=== PATIENT | female | born 1965 | race Caucasian/White ===

== ENCOUNTER → 2017-11-27 | Outpatient (CLI) | payer MEDICARE ==
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
== END ==
LOC: RAD 11:29
PROVIDERS: ATTEND Internal Medicine
DX: M25.512 Pain in left shoulder (principal); M79.602 Pain in left arm

== ENCOUNTER → 2018-04-03 | Outpatient (CLI) | payer MEDICARE ==
--- NOTE | 2018-04-03 16:10 | Diagnostic Imaging Report ---
Exam: Bilateral hips, 2 views History: Chronic bilateral hip pain Comparison: None. Findings: No acute, displaced fracture or dislocation. The femoral heads project appropriately over the acetabula. Mild femoroacetabular joint space narrowing with marginal acetabular osteophytosis. No femoral head flattening or subchondral collapse. Soft tissues are unremarkable. 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 Signed by: Dr. Ricardo Alvarado M.D. on 04/03/2018 4:07 PM
== END ==
LOC: RAD 15:23
PROVIDERS: ATTEND Internal Medicine
DX: M25.552 Pain in left hip (principal); M25.551 Pain in right hip
CPT/HCPCS: 73521

== ENCOUNTER → 2018-04-07 | Outpatient (CLI) | payer MEDICARE ==
--- NOTE | 2018-04-07 15:30 | Diagnostic Imaging Report ---
EXAM: Complete Abdominal Ultrasound INDICATION: Abdominal pain. Chronic diarrhea COMPARISON: None. TECHNIQUE: Transverse and longitudinal images of the upper abdomen were obtained. FINDINGS: Liver: Size: 14.4 cm in the right midclavicular line, normal Appearance: Normal echogenicity, smooth contour Mass: No focal masses Spleen: Size: 9.2 cm in length, normal Echogenicity: Normal Mass: No focal masses Gallbladder: Stones/Sludge: None Wall: 0.2 cm Appearance: No wall thickening, pericholecystic fluid or hydrops. Sonographic Edwards's Sign: Negative Bile Ducts: Intrahepatic Ducts: No dilatation Extrahepatic Ducts: Common bile duct measures 0.3 cm, no dilatation Pancreas: Visualized portions of the pancreatic head, neck and proximal body are normal. Kidneys: Length: Right 9.4 cm Left 8.4 cm Echogenicity: Normal Collecting System: No hydronephrosis Stone: None Cyst/Mass: None Vessels: Aorta: Visualized portions are normal Inferior Vena Cava: Visualized portions are normal Main Portal Vein: 1.0 cm, normal size with hepatopetal flow. Free Fluid: No ascites or pleural effusion IMPRESSION: Slightly limited exam due to patient's body habitus. Otherwise, unremarkable abdominal ultrasound. Signed by: Dr. Aaron Pena M.D. on 04/07/2018 3:27 PM
== END ==
LOC: US 14:28
PROVIDERS: ATTEND Internal Medicine
DX: R19.7 Diarrhea, unspecified (principal)
CPT/HCPCS: 76700

== ENCOUNTER 2018-07-15 04:04 | Emergency (ER) | payer MEDICARE ==
[~2018-07-15] VITALS: Ht 160 cm; Wt 104.8 kg
--- OUTSIDE RECORDS SUMMARY | 2018-07-15 04:08 | XMS REPORT ---
Author Author Elina Sandoval [facility] eClinicalWorks Address Unknown Phone Unavailable Care Team Providers Care Switchboard Operator Name Role Phone Elina Sandoval Unavailable Allergies, Adverse Reactions, Alerts Substance Reaction Event Type Rocephin rash Drug Allergy Problems Problem Type Condition Code Onset Dates Condition Status Assessment Polyarthritis M13.0 Active Problem Polyarthritis M13.0 Active Assessment Positive ALDO (antinuclear antibody) R76.8 Active Assessment Pain in left shoulder M25.512 Active Medications Medication Code System Code Instructions Start Date End Date Status Dosage Trintellix [facility] 51815827559 10 MG Orally Once a day Active 1 tablet Liothyronine Sodium ND 39569222132 5 MCG Orally bid Active 2 tablets Metoprolol Succinate ER ND 49090432046 100 MG Orally Once a day Active 1 tablet BusPIRone HCl ND 59969050919 10 MG Orally Twice a day Active 1 tablet Gabapentin ND 48753235448 600 MG Orally Three times a day Active 1 tablet Prilosec OTC ND 90546165817 20 MG Orally bid Active 1 tablet Eliquis ND 20610914349 5 MG Orally Active as directed Levothyroxine Sodium ND 79981482771 25 MCG Orally Once a day Active 1 tablet on an empty stomach in the morning Simvastatin ND 48175414255 40 MG Orally Once a day Active 1 tablet in the evening Glimepiride ND 72141792247 4 MG Orally twice a day Active 1 tablet with breakfast or the first main meal of the day Hydrocodone-Acetaminophen ND 98464053475 10-325 MG Orally every 6 hrs Active 1 tablet as needed Losartan Potassium ND 51426543134 50 MG Orally Once a day Active 1 tablet Metformin HCl ND 58172493854 500 MG Orally Twice a day Active 1 tablet with meals Plaquenil ND 62869072939 200 MG Orally BID May 28, 2018 Active 1 tablet with food or milk Donepezil Hydrochloride ND 99942744383 10 MG Orally Once a day Active 1 tablet at bedtime Plaquenil [facility] 66358695299 200 MG Orally Once a day May 28, 2018 Active 1 tablet with food or milk Vital Signs Date/Time: May 28, 2018 BMI 43.03 Index Weight 235.3 lbs Height 62 in Temperature 98.4 F Cardiac Monitoring Heart Rate 60 /min Blood Pressure Diastolic 82 mm Hg Blood Pressure Systolic 112 mm Hg Results No Known Results Summary Purpose eClinicalWorks Submission
--- OUTSIDE RECORDS SUMMARY | 2018-07-15 04:08 | XMS REPORT | Summary of Care ---
Author Author [facility] Organization [facility] Address Unknown Phone Unavailable Encounter HQ Elvin(ILEANA) [id number] Date(s): 12/01/16 - 12/02/16 [facility] [id number] [place] [address]- Discharge Disposition: Home or Self Care Attending Physician: Keenan Hurt MD Admitting Physician: Keenan Hurt MD Vital Signs 1 2 3 Most recent to oldest [Reference Range]: 160.02 cm (12/01/16 11:47 PM) 160.02 cm (12/01/16 4:53 PM) Height 98.6 DegF (12/02/16 11:50 AM) 98.1 DegF (12/02/16 7:44 AM) 98.1 DegF (12/02/16 3:38 AM) Temperature Oral [96.4-99.1 DegF] 128/75 mmHg (12/02/16 7:44 AM) 132/77 mmHg (12/02/16 3:38 AM) Blood Pressure [90-140/60-90 mmHg] 104 mmHg (12/02/16 11:50 AM) Systolic Blood Pressure [90-140 mmHg] 65 mmHg (12/02/16 11:50 AM) Diastolic Blood Pressure [60-90 mmHg] 18 BRMIN (12/02/16 11:50 AM) 17 BRMIN (12/02/16 7:44 AM) 16 BRMIN (12/02/16 7:21 AM) Respiratory Rate [14-20 BRMIN] 73 bpm (12/02/16 11:50 AM) 71 bpm (12/02/16 7:44 AM) 67 bpm (12/02/16 3:38 AM) Peripheral Pulse Rate [60-100 bpm] 115.455 kg (12/02/16 1:35 AM) 115.455 kg (12/01/16 11:47 PM) 115.455 kg (12/01/16 4:53 PM) Weight 45.09 m2 (12/01/16 11:47 PM) 45.09 m2 (12/01/16 4:53 PM) Body Mass Index Problem List Condition Effective Dates Status Health Status Informant Anxiety Resolved disorder(Confirmed) 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, left shoulder(Confirmed) 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, right shoulder(Confirmed) Biceps tendonitis of Resolved both shoulders(Confirmed) Bursitis of hip, Resolved right(Confirmed) CHF, Resolved chronic(Confirmed) Chronic Resolved depression(Confirmed ) 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 ) HTN Resolved (hypertension)(Confi rmed) Neuropathy of both Resolved feet(Confirmed) Tendonitis involving Resolved right hip abductors(Confirmed) Abnormal finding on Resolved thyroid function test(Confirmed) Allergies, Adverse Reactions, Alerts Substance Reaction Severity Status Other Food Allergy Active Medications aspirin 81 mg tablet, enteric coated 81 mg=1 tab, PO, Q24H, 0 Refill(s) Start Date: 12/02/16 Status: Ordered aspirin 81 mg tablet, enteric coated 81 mg, 1 tab, Route: PO, Drug form: ECTAB, Q24H, Dosing Weight 115.455, kg, Star t date: 12/02/16 1:00:00 CDT, Duration: 30 day, Stop date: 12/31/16 1:00:00 CDT Notes: Do not crush or chew.(Same As: Ecotrin) Start Date: 12/02/16 Stop Date: 12/02/16 Status: Discontinued Ativan 1 mg, 1 tab, Route: PO, Drug form: TAB, ONCE, Dosing Weight 115.455, kg, Priorit y: STAT, Start date: 12/01/16 21:45:00 CDT, Stop date: 12/01/16 21:45:00 CDT Notes: (Same as: Ativan) Start Date: 12/01/16 Stop Date: 12/01/16 Status: Completed Breo Ellipta 200 mcg-25 mcg/inh inhalation powder 1 puff, INHALATION, Daily, 0 Refill(s) Start Date: 12/01/16 Status: Ordered busPIRone 10 mg, 1 tab, Route: PO, Drug form: TAB, BID, Dosing Weight 115.455, kg, Start d ate: 12/02/16 17:00:00 CDT, Duration: 30 day, Stop date: 01/01/17 9:00:00 CDT Notes: (Same As: BuSpar) Start Date: 12/02/16 Stop Date: 12/02/16 Status: Canceled busPIRone 10 mg oral tablet 10 mg=1 tab, PO, BID, 0 Refill(s) Start Date: 12/01/16 Status: Ordered Dextrose 50% Syringe 12.5 gm, 25 mL, Route: IVP, Drug Form: INJ, Dosing Weight 115.455, kg, PRN, PRN Blood Glucose Results, Start date: 12/02/16 1:40:00 CDT, Duration: 30 day, Stop date: 01/01/17 1:39:00 CDT Start Date: 12/02/16 Stop Date: 12/02/16 Status: Discontinued Dextrose 50% Syringe 25 gm, 50 mL, Route: IVP, Drug Form: INJ, Dosing Weight 115.455, kg, PRN, PRN Bl ood Glucose Results, Start date: 12/02/16 1:40:00 CDT, Duration: 30 day, Stop da te: 01/01/17 1:39:00 CDT Start Date: 12/02/16 Stop Date: 12/02/16 Status: Discontinued donepezil 10 mg, 2 tab, Route: PO, Drug form: TAB, Bedtime, Dosing Weight 115.455, kg, Sta rt date: 12/02/16 21:00:00 CDT, Duration: 30 day, Stop date: 12/31/16 21:00:00 C DT Notes: (Same as: Aricept) Start Date: 12/02/16 Stop Date: 12/02/16 Status: Canceled donepezil 10 mg oral tablet 10 mg=1 tab, PO, Bedtime, 0 Refill(s) Start Date: 12/01/16 Status: Ordered gabapentin 600 mg, 2 cap, Route: PO, Drug form: CAP, TID, Dosing Weight 115.455, kg, Start date: 12/02/16 17:00:00 CDT, Duration: 30 day, Stop date: 01/01/17 13:00:00 CDT Notes: (Same as: Neurontin) Start Date: 12/02/16 Stop Date: 12/02/16 Status: Canceled gabapentin 600 mg oral tablet 600 mg=1 tab, PO, TID, 0 Refill(s) Start Date: 12/01/16 Status: Ordered glimepiride 4 mg, Route: PO, Drug form: TAB, BID, Dosing Weight 115.455, kg, Start date: 17:00:00 CDT, Duration: 30 day, Stop date: 01/01/17 9:00:00 CDT Start Date: 12/02/16 Stop Date: 12/02/16 Status: Deleted glimepiride 4 mg oral tablet 4 mg=1 tab, PO, BID, 0 Refill(s) Start Date: 12/01/16 Status: Ordered glucagon 1 mg, Route: IM, Drug form: PDR/INJ, PRN, Dosing Weight 115.455, kg, PRN Blood G lucose Results, Start date: 12/02/16 1:40:00 CDT, Duration: 30 day, Stop date: 0 01/01/17 1:39:00 CDT Start Date: 12/02/16 Stop Date: 12/02/16 Status: Discontinued Glucotrol 10 mg, 1 tab, Route: PO, Drug form: TAB, BID, Start date: 12/02/16 17:00:00 CDT, Duration: 30 day, Stop date: 01/01/17 9:00:00 CDT Notes: (Same as: Glucotrol) 30 min before meals. Start Date: 12/02/16 Stop Date: 12/02/16 Status: Canceled hydrALAZINE 10 mg, 0.5 mL, Route: IV, Drug form: INJ, ONCE, Dosing Weight 115.455, kg, Start date: 12/01/16 21:19:00 CDT, Stop date: 12/01/16 21:19:00 CDT Notes: (Same as: Apresoline)Push over 5 minutes Start Date: 12/01/16 Stop Date: 12/01/16 Status: Completed insulin aspart 2 unit, 0.02 mL, Route: SUB-Q, Drug form: SOLN, TID-Before Meals, Dosing Weight 115.455, kg, PRN Blood Glucose Results, Start date: 12/02/16 1:40:00 CDT, Durati on: 30 day, Stop date: 01/01/17 1:39:00 CDT Notes: Roll in palms of hands gently; Do not shake vigorously. (Same as: Karolina Sullivan)"single patient use only"WASTE: F/P - Black; E - Municipal Trash Bin Stable f or 28 days at room temperature.Expires in days from Date Start Date: 12/02/16 Stop Date: 12/02/16 Status: Discontinued insulin aspart 6 unit, 0.06 mL, Route: SUB-Q, Drug form: SOLN, TID-Before Meals, Dosing Weight 115.455, kg, PRN Blood Glucose Results, Start date: 12/02/16 1:40:00 CDT, Durati on: 30 day, Stop date: 01/01/17 1:39:00 CDT Notes: Roll in palms of hands gently; Do not shake vigorously. (Same as: Karolina Sullivan)"single patient use only"WASTE: F/P - Black; E - Municipal Trash Bin Stable f or 28 days at room temperature.Expires in days from Date Start Date: 12/02/16 Stop Date: 12/02/16 Status: Discontinued insulin aspart 4 unit, 0.04 mL, Route: SUB-Q, Drug form: SOLN, TID-Before Meals, Dosing Weight 115.455, kg, PRN Blood Glucose Results, Start date: 12/02/16 1:40:00 CDT, Durati on: 30 day, Stop date: 01/01/17 1:39:00 CDT Notes: Roll in palms of hands gently; Do not shake vigorously. (Same as: Karolina Sullivan)"single patient use only"WASTE: F/P - Black; E - Municipal Trash Bin Stable f or 28 days at room temperature.Expires in days from Date Start Date: 12/02/16 Stop Date: 12/02/16 Status: Discontinued insulin aspart 10 unit, 0.1 mL, Route: SUB-Q, Drug form: SOLN, TID-Before Meals, Dosing Weight 115.455, kg, PRN Blood Glucose Results, Start date: 12/02/16 1:40:00 CDT, Durati on: 30 day, Stop date: 01/01/17 1:39:00 CDT Notes: Roll in palms of hands gently; Do not shake vigorously. (Same as: Karolina Sullivan)"single patient use only"WASTE: F/P - Black; E - Municipal Trash Bin Stable f or 28 days at room temperature.Expires in days from Date Start Date: 12/02/16 Stop Date: 12/02/16 Status: Discontinued insulin aspart 8 unit, 0.08 mL, Route: SUB-Q, Drug form: SOLN, TID-Before Meals, Dosing Weight 115.455, kg, PRN Blood Glucose Results, Start date: 12/02/16 1:40:00 CDT, Durati on: , Stop date: 01/01/17 1:39:00 CDT Notes: Roll in palms of hands gently; Do not shake vigorously. (Same as: Karolina Sullivan)"single patient use only"WASTE: F/P - Black; E - Municipal Trash Bin Stable f or 28 days at room temperature.Expires in days from Date Start Date: 12/02/16 Stop Date: 12/02/16 Status: Discontinued insulin aspart 3 unit, 0.03 mL, Route: SUB-Q, Drug form: SOLN, Bedtime, Dosing Weight 115.455, kg, PRN Blood Glucose Results, Start date: 12/02/16 1:40:00 CDT, Duration: 30 da y, Stop date: 01/01/17 1:39:00 CDT Notes: Roll in palms of hands gently; Do not shake vigorously. (Same as: Kaorlina Sullivan)"single patient use only"WASTE: F/P - Black; E - Municipal Trash Bin Stable f or 28 days at room temperature.Expires in days from Date Start Date: 12/02/16 Stop Date: 12/02/16 Status: Discontinued insulin aspart 4 unit, 0.04 mL, Route: SUB-Q, Drug form: SOLN, Bedtime, Dosing Weight 115.455, kg, PRN Blood Glucose Results, Start date: 12/02/16 1:40:00 CDT, Duration: 30 da y, Stop date: 01/01/17 1:39:00 CDT Notes: Roll in palms of hands gently; Do not shake vigorously. (Same as: Karolina Sullivan)"single patient use only"WASTE: F/P - Black; E - Municipal Trash Bin Stable f or 28 days at room temperature.Expires in days from Date Start Date: 12/02/16 Stop Date: 12/02/16 Status: Discontinued insulin aspart 2 unit, 0.02 mL, Route: SUB-Q, Drug form: SOLN, Bedtime, Dosing Weight 115.455, kg, PRN Blood Glucose Results, Start date: 12/02/16 1:40:00 CDT, Duration: 30 da y, Stop date: 01/01/17 1:39:00 CDT Notes: Roll in palms of hands gently; Do not shake vigorously. (Same as: Karolina Sullivan)"single patient use only"WASTE: F/P - Black; E - Municipal Trash Bin Stable f or 28 days at room temperature.Expires in days from Date Start Date: 12/02/16 Stop Date: 12/02/16 Status: Discontinued insulin aspart 1 unit, 0.01 mL, Route: SUB-Q, Drug form: SOLN, Bedtime, Dosing Weight 115.455, kg, PRN Blood Glucose Results, Start date: 12/02/16 1:40:00 CDT, Duration: 30 da y, Stop date: 01/01/17 1:39:00 CDT Notes: Roll in palms of hands gently; Do not shake vigorously. (Same as: Karolina Sullivan)"single patient use only"WASTE: F/P - Black; E - Municipal Trash Bin Stable f or 28 days at room temperature.Expires in days from Date Start Date: 12/02/16 Stop Date: 12/02/16 Status: Discontinued levothyroxine 200 microgram, 2 tab, Route: PO, Drug form: TAB, Daily, Dosing Weight 115.455, k g, Start date: 12/03/16 6:30:00 CDT, Duration: 30 day, Stop date: 01/01/17 6:30: 00 CDT Notes: Take 1 hour before or 2 hours after meal; Enteral feeds may interefere wi th the absorption of this medication. (Same as:Levothroid, Synthroid) Start Date: 12/03/16 Stop Date: 12/02/16 Status: Canceled levothyroxine 200 mcg (0.2 mg) oral tablet 200 microgram=1 tab, PO, Daily, # 30 tab, 0 Refill(s) Start Date: 12/02/16 Status: Ordered liothyronine 5 microgram, 1 tab, Route: PO, Drug form: TAB, Daily, Dosing Weight 115.455, kg, Start date: 12/03/16 9:00:00 CDT, Duration: 30 day, Stop date: 01/01/17 9:00:00 CDT Notes: (Same as: Santana) Start Date: 12/03/16 Stop Date: 12/02/16 Status: Canceled liothyronine 5 mcg oral tablet 5 microgram=1 tab, PO, Daily, # 30 tab, 0 Refill(s) Start Date: 12/02/16 Status: Ordered losartan 50 mg, 1 tab, Route: PO, Drug form: TAB, Daily, Dosing Weight 115.455, kg, Start date: 12/02/16 9:00:00 CDT, Duration: 30 day, Stop date: 12/31/16 9:00:00 CDT Notes: (Same as: Keila) Start Date: 12/02/16 Stop Date: 12/02/16 Status: Discontinued losartan 50 mg oral tablet 50 mg=1 tab, PO, Daily, 0 Refill(s) Start Date: 12/01/16 Status: Ordered metFORMIN 500 mg, 1 tab, Route: PO, Drug form: TAB, BID, Dosing Weight 115.455, kg, Start date: 12/02/16 17:00:00 CDT, Duration: 30 day, Stop date: 01/01/17 9:00:00 CDT Notes: (Same as: Glucophage) Take with meal Start Date: 12/02/16 Stop Date: 12/02/16 Status: Canceled Metoprolol Succinate ER 50 mg oral tablet, extended release 50 mg=1 tab, PO, Daily, 0 Refill(s) Start Date: 12/01/16 Stop Date: 12/02/16 Status: Discontinued morphine 15 mg oral tablet, extended release 1, PO, BID, 0 Refill(s) Start Date: 12/01/16 Status: Ordered morphine 15 mg oral tablet, extended release 15 mg, 1 tab, Route: PO, Drug form: ERTAB, BID, Dosing Weight 115.455, kg, Start date: 12/02/16 17:00:00 CDT, Duration: 30 day, Stop date: 01/01/17 9:00:00 CDT Notes: Do not crush (Same as:Oramorph SR, MS Contin) Start Date: 12/02/16 Stop Date: 12/02/16 Status: Canceled morphine Sulfate 15 mg, Route: PO, BID, Dosing Weight 115.455, kg, Start date: 12/02/16 9:00:00 C DT, Duration: 30 day, Stop date: 12/31/16 17:00:00 CDT Start Date: 12/02/16 Stop Date: 12/02/16 Status: Canceled morphine Sulfate 4 mg, 1 mL, Route: IVP, Drug form: SOLN, ONCE, Dosing Weight 115.455, kg, Priori ty: STAT, Start date: 12/01/16 21:19:00 CDT, Stop date: 12/01/16 21:19:00 CDT Notes: (Same as:MORPhine Sulfate) Start Date: 12/01/16 Stop Date: 12/01/16 Status: Discontinued nitroglycerin SL Tab 0.4 mg, 1 tab, Route: SL, Drug form: TAB, Q5Min, Dosing Weight 115.455, kg, PRN Chest Pain, Start date: 12/01/16 23:22:00 CDT, Duration: 3 doses or times, Stop date: Limited # of times Notes: (Same as:Nitroquick, Nitrostat)"Do Not Crush" Sublingual tablet Start Date: 12/01/16 Stop Date: 12/02/16 Status: Discontinued ondansetron 4 mg, 2 mL, Route: IVP, Drug form: INJ, ONCE, Dosing Weight 115.455, kg, Priorit y: STAT, Start date: 12/01/16 21:19:00 CDT, Stop date: 12/01/16 21:19:00 CDT Notes: (Same as: Douglas) MEDICATION WASTE Product Size: 4 mgProduct Was richard: ___ mg Start Date: 12/01/16 Stop Date: 12/01/16 Status: Discontinued ondansetron 4 mg, 1 tab, Route: PO, Drug form: TAB, Q8H, Dosing Weight 115.455, kg, PRN Naus ea & Vomiting, Start date: 12/01/16 23:22:00 CDT, Duration: 30 day, Stop date: 12/31/16 23:21:00 CDT Notes: (Same as: Douglas) Start Date: 12/01/16 Stop Date: 12/02/16 Status: Discontinued pneumococcal 23-valent vaccine 0.5 mL, Route: IM, Drug Form: INJ, Daily, Start date: 12/02/16 9:00:00 CDT, Dura tion: 1 doses or times, Stop date: 12/02/16 9:00:00 CDT Notes: (Same as: Pneumovax 23) Refrigerate Start Date: 12/02/16 Stop Date: 12/02/16 Status: Completed Prilosec 10 mg, PO, BID, 0 Refill(s) Start Date: 12/02/16 Status: Ordered Prilosec 10 mg, Route: PO, BID, Dosing Weight 115.455, kg, Start date: 12/02/16 17:00:00 CDT, Duration: 30 day, Stop date: 01/01/17 9:00:00 CDT Start Date: 12/02/16 Stop Date: 12/02/16 Status: Deleted Protonix 40 mg, 1 tab, Route: PO, Drug form: ECTAB, Q24H, Start date: 12/02/16 16:30:00 C DT, Duration: 30 day, Stop date: 12/31/16 16:30:00 CDT Notes: Tablet should not be chewed or crushed.(Same as: Protonix) Start Date: 12/02/16 Stop Date: 12/02/16 Status: Canceled Saline Flush 0.9% 10 mL, Route: IVP, Drug Form: INJ, Dosing Weight 115.455, kg, PRN, PRN Line Flus h, Start date: 12/01/16 19:09:00 CDT, Duration: 30 day, Stop date: 12/31/16 19:0 8:00 CDT Notes: (Same as: BD Posiflush) Start Date: 12/01/16 Stop Date: 12/02/16 Status: Discontinued Saline Flush 0.9% 10 ml, Route: IVP, Drug Form: INJ, Dosing Weight 115.455, kg, PRN, PRN Line Flus h, Start date: 12/01/16 23:22:00 CDT, Duration: 30 day, Stop date: 12/31/16 23:2 1:00 CDT Notes: (Same as: BD Posiflush) Start Date: 12/01/16 Stop Date: 12/02/16 Status: Discontinued Saline Flush 0.9% 10 ml, Route: IVP, Drug Form: INJ, Dosing Weight 115.455, kg, PRN, PRN Line Flus h, Start date: 12/01/16 23:22:00 CDT, Duration: 30 day, Stop date: 12/31/16 23:2 1:00 CDT Notes: (Same as: BD Posiflush) Start Date: 12/01/16 Stop Date: 12/02/16 Status: Discontinued Saline Flush 0.9% 10 ml, Route: IVP, Drug Form: INJ, Dosing Weight 115.455, kg, Q12H, Start date: 12/02/16 9:00:00 CDT, Duration: 30 day, Stop date: 12/31/16 21:00:00 CDT Notes: (Same as: BD Posiflush) Start Date: 12/02/16 Stop Date: 12/02/16 Status: Discontinued simvastatin 40 mg, 1 tab, Route: PO, Drug form: TAB, Bedtime, Dosing Weight 115.455, kg, Sta rt date: 12/02/16 21:00:00 CDT, Duration: 30 day, Stop date: 12/31/16 21:00:00 C DT Notes: (Same as: Zocor) Start Date: 12/02/16 Stop Date: 12/02/16 Status: Canceled simvastatin 40 mg oral tablet 40 mg=1 tab, PO, Bedtime, 0 Refill(s) Start Date: 12/01/16 Status: Ordered sodium chloride 0.9% 1000 ml INJ 1,000 mL 1,000 mL, Rate: 40 ml/hr, Infuse over: 25 hr, Route: IV, Dosing Weight 115.455 k g, Total Volume: 1,000, Start date: 12/01/16 23:22:00 CDT, Duration: 30 day, Sto p date: 12/31/16 23:21:00 CDT Start Date: 12/01/16 Stop Date: 12/02/16 Status: Discontinued Toprol-XL 50 mg oral tablet, extended release 50 mg, 1 tab, Route: PO, Drug form: ERTAB, Daily, Start date: 12/01/16 11:45:00 CDT, Duration: 30 day, Stop date: 12/31/16 9:00:00 CDT Notes: (Same as: Toprol XL) May split tab, but do not crush. Start Date: 12/01/16 Stop Date: 12/02/16 Status: Discontinued Trintellix 10 mg oral tablet 10 mg=1 tab, PO, Daily, 0 Refill(s) Start Date: 12/02/16 Status: Ordered Ventolin HFA 90 mcg/inh inhalation aerosol with adapter 2 puff, Route: INHALATION, Drug Form: AERO/A, Dosing Weight 115.455, kg, Q4H, HI N Wheezing, Start date: 12/02/16 13:27:00 CDT, Duration: 30 day, Stop date: 12/05 13:26:00 CDT Notes: Same as: Ventolin HFAWASTE: Aerosol - Return to Pharmacy Start Date: 12/02/16 Stop Date: 12/02/16 Status: Discontinued Ventolin HFA 90 mcg/inh inhalation aerosol with adapter 2 puff, INHALATION, Q4H, PRN as needed for wheezing, 0 Refill(s) Start Date: 12/01/16 Status: Ordered Results ELECTROLYTES Most recent to 1 2 oldest [Reference Range]: Sodium Lvl [135-145 137 mEq/L 136 mEq/L mEq/L] (12/02/16 3:47 AM) (12/01/16 8:40 PM) Potassium Lvl 4.3 mEq/L 4.5 mEq/L [3.5-5.1 mEq/L] (12/02/16 3:47 AM) (12/01/16 8:40 PM) Chloride Lvl [95-109 105 mEq/L 102 mEq/L mEq/L] (12/02/16 3:47 AM) (12/01/16 8:40 PM) CO2 [24-32 mEq/L] 27 mEq/L 27 mEq/L (12/02/16 3:47 AM) (12/01/16 8:40 PM) AGAP [10.0-20.0 9.3 mEq/L 11.5 mEq/L mEq/L] *LOW* (12/01/16 8:40 PM) (12/02/16 3:47 AM) CHEM PANEL Most recent to 1 2 oldest [Reference Range]: Creatinine Lvl 1.10 mg/dL 1.20 mg/dL [0.50-1.40 mg/dL] (12/02/16 3:47 AM) (12/01/16 8:40 PM) eGFR 57 mL/min/1.73m2 1 52 mL/min/1.73m2 2 *NA* *NA* (12/02/16 3:47 AM) (12/01/16 8:40 PM) BUN [7-22 mg/dL] 21 mg/dL 24 mg/dL (12/02/16 3:47 AM) *HI* (12/01/16 8:40 PM) B/C Ratio [6-25] 20 (12/01/16 8:40 PM) Glucose Lvl [70-99 142 mg/dL 160 mg/dL mg/dL] *HI* *HI* (12/02/16 3:47 AM) (12/01/16 8:40 PM) Total Protein 7.5 g/dL [6.4-8.4 g/dL] (12/01/16 8:40 PM) Albumin Lvl [3.5-5.0 3.4 g/dL g/dL] *LOW* (12/01/16 8:40 PM) Globulin [2.7-4.2 4.1 g/dL g/dL] (12/01/16 8:40 PM) A/G Ratio [0.7-1.6] 0.8 (12/01/16 8:40 PM) Calcium Lvl 9.1 mg/dL 9.0 mg/dL [8.5-10.5 mg/dL] (12/02/16 3:47 AM) (12/01/16 8:40 PM) ALT [0-65 unit/L] 16 unit/L (12/01/16 8:40 PM) AST [0-37 unit/L] 7 unit/L (12/01/16 8:40 PM) Alk Phos [39-136 65 unit/L unit/L] (12/01/16 8:40 PM) Bili Total [0.2-1.3 0.5 mg/dL mg/dL] (12/01/16 8:40 PM) 1Result Comment: The eGFR is calculated using the CKD-EPI formula. In most young, healthy individuals the eGFR will be >90 mL/min/1.73m2. The eGFR declines with age. An eGFR of 60-89 may be normal in some populations, particularly the elderly, for whom the CKD-EPI formula has not been extensively validated. Use of the eGFR is not recommended in the following populations: Individuals with unstable creatinine concentrations, including patients and those with serious co-morbid conditions. Patients with extremes in muscle mass or diet. The data above are obtained from the National Kid[employer] Disease Education Program ( NK[employer]) which additionally recommends that when the eGFR is used in patients with extremes of body mass index for purposes of drug dosing, the eGFR should be mul tiplied by the estimated BMI. 2Result Comment: The eGFR is calculated using the CKD-EPI formula. In most young, healthy individuals the eGFR will be >90 mL/min/1.73m2. The eGFR declines with age. An eGFR of 60-89 may be normal in some populations, particularly the elderly, for whom the CKD-EPI formula has not been extensively validated. Use of the eGFR is not recommended in the following populations: Individuals with unstable creatinine concentrations, including patients and those with serious co-morbid conditions. Patients with extremes in muscle mass or diet. The data above are obtained from the National Kidney Disease Education Program ( NKDEP) which additionally recommends that when the eGFR is used in patients with extremes of body mass index for purposes of drug dosing, the eGFR should be mul tiplied by the estimated BMI. CARDIAC ENZYMES Most recent to 1 2 oldest [Reference Range]: Total CK [12-191 38 unit/L unit/L] (12/01/16 8:40 PM) CK MB [0.5-3.6 0.5 ng/mL ng/mL] (12/01/16 8:40 PM) CK MB Index 1.3 [0.0-2.5] (12/01/16 8:40 PM) Troponin-I <0.02 ng/mL <0.02 ng/mL [0.00-0.40 ng/mL] (12/02/16 12:54 AM) (12/01/16 8:40 PM) BNP [<=100 pg/mL] 166 pg/mL *HI* (12/01/16 8:40 PM) DRUG SCREEN Most recent to 1 2 oldest [Reference Range]: U Amph Scr Positive [Negative] *ABN* (12/01/16 8:40 PM) U Lisa Scr Negative [Negative] *NA* (12/01/16 8:40 PM) U Benzodia Scr Negative [Negative] *NA* (12/01/16 8:40 PM) U Cocaine Scr Positive [Negative] *ABN* (12/01/16 8:40 PM) U Opiate Scr Positive [Negative] *ABN* (12/01/16 8:40 PM) U Phencyc Scr Negative [Negative] *NA* (12/01/16 8:40 PM) U Cannab Scr Negative [Negative] *NA* (12/01/16 8:40 PM) UDS Note See Note (12/01/16 8:40 PM) HEMATOLOGY Most recent to 1 2 oldest [Reference Range]: WBC [3.7-10.4 K/CMM] 8.7 K/CMM 9.6 K/CMM (12/02/16 3:47 AM) (12/01/16 8:40 PM) RBC [4.20-5.40 3.87 M/CMM 4.18 M/CMM M/CMM] *LOW* *LOW* (12/02/16 3:47 AM) (12/01/16 8:40 PM) Hgb [12.0-16.0 g/dL] 11.6 g/dL 12.1 g/dL *LOW* (12/01/16 8:40 PM) (12/02/16 3:47 AM) Hct [36.0-48.0 %] 33.7 % 36.3 % *LOW* (12/01/16 8:40 PM) (12/02/16 3:47 AM) MCV [80.0-98.0 fL] 87.1 fL 87.0 fL (12/02/16 3:47 AM) (12/01/16 8:40 PM) MCH [27.0-31.0 pg] 29.9 pg 29.0 pg (12/02/16 3:47 AM) (12/01/16 8:40 PM) MCHC [32.0-36.0 34.3 g/dL 33.3 g/dL g/dL] (12/02/16 3:47 AM) (12/01/16 8:40 PM) RDW [11.5-14.5 %] 13.6 % 13.3 % (12/02/16 3:47 AM) (12/01/16 8:40 PM) Platelet [133-450 251 K/CMM 250 K/CMM K/CMM] (12/02/16 3:47 AM) (12/01/16 8:40 PM) MPV [7.4-10.4 fL] 7.9 fL 8.1 fL (12/02/16 3:47 AM) (12/01/16 8:40 PM) Segs [45.0-75.0 %] 64.4 % 64.7 % (12/02/16 3:47 AM) (12/01/16 8:40 PM) Lymphocytes 27.4 % 26.5 % [20.0-40.0 %] (12/02/16 3:47 AM) (12/01/16 8:40 PM) Monocytes [2.0-12.0 6.0 % 6.5 % %] (12/02/16 3:47 AM) (12/01/16 8:40 PM) Eosinophils [0.0-4.0 1.4 % 1.0 % %] (12/02/16 3:47 AM) (12/01/16 8:40 PM) Basophils [0.0-1.0 0.8 % 1.3 % %] (12/02/16 3:47 AM) *HI* (12/01/16 8:40 PM) Segs-Bands # 5.6 K/CMM 6.2 K/CMM [1.5-8.1 K/CMM] (12/02/16 3:47 AM) (12/01/16 8:40 PM) Lymphocytes # 2.4 K/CMM 2.5 K/CMM [1.0-5.5 K/CMM] (12/02/16 3:47 AM) (12/01/16 8:40 PM) Monocytes # [0.0-0.8 0.5 K/CMM 0.6 K/CMM K/CMM] (12/02/16 3:47 AM) (12/01/16 8:40 PM) Eosinophils # 0.1 K/CMM 0.1 K/CMM [0.0-0.5 K/CMM] (12/02/16 3:47 AM) (12/01/16 8:40 PM) Basophils # [0.0-0.2 0.1 K/CMM 0.1 K/CMM K/CMM] (12/02/16 3:47 AM) (12/01/16 8:40 PM) Immunizations Not Given Vaccine Date Status Refusal Reason pneumococcal 23-valent vaccine 12/02/16 Not Given Patient Refuses Procedures Procedure Date Related Diagnosis Body Site Caesarean section Endoscopic carpal tunnel release Gastric bypass operation Lumbar laminectomy and excision of intradural spinal lesion Social History Social History Type Response Substance Abuse IV drug use: No. Drug use interferes with work/home: No. Ready to change: No. Household substance abuse concerns: No. Cessation Education Provided: No. Sexual Sexually active: No. Partner with STD? No. Uses condoms: No. History of sexual abuse: No. Sex Mutually Satisfying: No. Change in Libido: No. Self Breast Exam No. Menstrual Period Started: No. Exercise Exercise duration: 30. Exercise frequency: 3-4 times/week. Exercise type: Walking. Employment/School Status: Disabled. Operates hazardous equipment: No. Alcohol Previous treatment: None. Alcohol use interferes with work or home: No. Drinks more than intended: No. Others hurt by drinking: No. Ready to change: No. Household alcohol concerns: No. Smoking Status Former smoker; Type: Cigarettes; Previous treatment: None; Exposure to Tobacco Smoke None; Cigarette Smoking Last 365 Days No; Reg Smoking Cessation Counseling No Assessment and Plan Extracted from: Title: Discharge Summary * Author: Keenan Hurt MD Date: 12/02/16 Discharge Information Disposition to home Condition stable Medications: See med reconciliation form Diet: Regular Discharge Plan Follow-up with your PCP in 1 week In the event of any worsening symptoms patient was a come back to the ED for further evaluation Discharge summary took greater than 35 minutes Extracted from: Title: CARDIOLOGY Author: Brigido Temple Date: 12/02/16 [place] [place] CARDIOLOGY PROGRESS NOTE [facility] MD Dr. Harrison Walker [address] [facility], [address] [place], [place], [address] Office: [phone] Attending: Keenan Hurt MDPhone: Service: Internal Medicine Code status: None Specified=FULL CODE Reason for Admission: CHEST PAIN, UNCOMPLICATED COCAINE ABUSE Working DRG: None Documented Isolation: None Documented Consulting Physicians: Brigido Temple MDOffice: Service: Medicine, Cardiology Taras Mathur MDOffice: Service: Medicine SUBJECTIVE Doing well. NO current CV complaints. TTE done shows preserved LVEF. ACS r/o with negative cardiac biomarkers PHYSICAL EXAM VitalsTmp(F)[id number] 12/02 07:[id number]--- 12/02 07:21 1697 21% 12/02 03:[id number]--- 12/01 23:47 99--- 12/01 23:[id number]--- 24 Hr Tmax: 98.4F (36.89c) at 12/01 23:04Vital Signs are the last 5 in the past 48 hours. I&ORecordInOutBal 11/3123hr Tot 0 0 0 4hr Tot 160 0 160 GENERAL: In bed, no apparent distress. HEENT: Moist mucous membranes, neck supple, JVD absent, carotid bruit absent CV: RRR, S1/S2 normal, S3/S4 negative. CELINA LUSB LUNGS: CTA bilaterally, no wheezing, no crackles ABD: Soft, non tender, non distended, no masses or megalies on my exam EXT: Edema absent, pulses present NEURO: AAOx3, moves 4 extremities, no gross deficit on my exam Telemetry: Sinus, nsst Labs (Last four charted values) WBC 8.7(DEC 02)9.6(DEC 01) Hgb L 11.6(DEC 02)12.1(DEC 01) Hct L 33.7(DEC 02)36.3(DEC 01) Plt 251(DEC 02)250(DEC 01) Na 137(DEC 02)136(DEC 01) K 4.3(DEC 02)4.5(DEC 01) CO2 27(DEC 02)27(DEC 01) Cl 105(DEC 02)102(DEC 01) Cr 1.10(DEC 02)1.20(DEC 01) BUN 21(DEC 02)H 24(DEC 01) Glucose Random H 142(DEC 02)H 160(DEC 01) Ca 9.1(DEC 02)9.0(DEC 01) Troponin <0.02(DEC 02)<0.02(DEC 01) CK MB 0.5(DEC 01) Total CK 38(DEC 01) Medications (25) Active Scheduled Meds (4): 12/02/16 aspirin (aspirin 81 mg tablet, enteric coated) 81 mg PO Q24H 12/02/16 losartan 50 mg PO Daily 12/01/16 metoprolol (Toprol-XL 50 mg oral tablet, extended release) 50 mg PO Daily 12/02/16 sodium chloride (Saline Flush 0.9%) 10 ml IVP Q12H Unscheduled Meds: None PRN Meds (16): 12/02/16 Dextrose 50% in Water IV (Dextrose 50% Syringe) 12.5 gm IVP PRN 12/02/16 Dextrose 50% in Water IV (Dextrose 50% Syringe) 25 gm IVP PRN 12/02/16 glucagon 1 mg IM PRN 12/02/16 insulin aspart 2 unit SUB-Q TID-Before Meals 12/02/16 insulin aspart 4 unit SUB-Q TID-Before Meals 12/02/16 insulin aspart 6 unit SUB-Q TID-Before Meals 12/02/16 insulin aspart 8 unit SUB-Q TID-Before Meals 12/02/16 insulin aspart 10 unit SUB-Q TID-Before Meals 12/02/16 insulin aspart 1 unit SUB-Q Bedtime 12/02/16 insulin aspart 2 unit SUB-Q Bedtime 12/02/16 insulin aspart 3 unit SUB-Q Bedtime 12/02/16 insulin aspart 4 unit SUB-Q Bedtime 12/01/16 nitroglycerin (nitroglycerin SL Tab) 0.4 mg SL Q5Min 12/01/16 ondansetron 4 mg PO Q8H 12/01/16 sodium chloride (Saline Flush 0.9%) 10 ml IVP PRN 12/01/16 sodium chloride (Saline Flush 0.9%) 10 ml IVP PRN One Time Meds (4): 12/01/16 (Completed) LORazepam (Ativan) 1 mg PO ONCE 12/01/16 (Completed) hydrALAZINE 10 mg IV ONCE 12/01/16 (Discontinued) morphine Sulfate 4 mg IVP ONCE 12/01/16 (Discontinued) ondansetron 4 mg IVP ONCE Continuous Infusions (1): 12/01/16 sodium chloride 0.9% 1000 ml INJ 1,000 mL 1,000 mL 40 ml/hr ASSESSMENT & PLAN CHEST PAIN - Atypical in origin, likely 2/2 cocaine use. Currently resolved. - ECG with no acute changes, ACS r/o with negative cardiac biomarkers. - Continue b-blockers. Continue medical Rx optimization - TTE shows preserved LVEF. HTN - At target since home meds restarted DRUG ABUSE - Extensive counseling provided regarding drug use and its consequences. She voices understanding. DM - Medicine managing. No further CV work up indicated at this time. Counseling provided regarding drug abuse. Continue follow up with her PCP. Extracted from: Title: CARDIOLOGY Author: Brigido Temple Date: 12/01/16 [place] [facility] CONSULT [facility] MD Dr. Harrison Walker [address], [address] [place], [place], [address] Office: [phone] REASON FOR CONSULT: CV management REQUESTING MD: MD Bhupinder HISTORY OF PRESENT ILLNESS Mrs. Paulino is 51yo female with a PMHx of HTN, HLD, who [place] [facility] [place] of palpitations and chest pain. She refers that last night she went partying with her friends and she used a mix of cocaine + methamphetamines. Then around 3 am she started developing palpitations and chest discomfort for which she came to the hospital. In the hospital she was found to be hypertensive; ecg showed sinus rhythm. First set of cardiac bioomarkers is negative. UDS was positive for BZD, methemphetamins and cocaine. She is being admitted for further eval. Currently she is in the ER; she refers that she feels well, feels anxious. DEnies any current chest pain, palpitations or syncope. She does refers that she feels jittery. PAST MEDICAL HISTORY HTN HLD DM Hypothyroidism Neureopathy h/o atrial fibrillation - 2009 PAST SURGICAL HISTORY Non contributory ALLERGIES NKDA FAMILY HISTORY Non contributory HOME MEDS See MAR SOCIAL HISTORY Smoking: Denies EtOH: Denies Other: Denies REVIEW OF SYSTEMS Nervous: Denies Endocrine: Denies Skin: Denies CV: as per HPI Respiratory: as per HPI Hematology/Coagulation: Denies Urinary: Denies Genital: Denies Metabolic: Denies MSK: Denies GI: Denies ID: Denies Endo: Denies Rheum: Denies PHYSICAL EXAM VitalsTmp(F)[id number] 12/01 23:[id number]--- 12/01 21:31----[id number] 2.0L/m 12/01 20:56----[id number]--- 12/01 16:[id number]--- 24 Hr Tmax: 98.4F (36.89c) at 12/01 23:04Vital Signs are the last 5 in the past 48 hours. I&ORecordInOutBal 24hr Tot 0 0 0 24hr Tot 0 0 0 GENERAL: In bed, no apparent distress. HEENT: Moist mucous membranes, neck supple, JVD absent, carotid bruit absent CV: RRR, S1/S2 normal, S3/S4 negative. CELINA LUSB. LUNGS: CTA bilaterally, no wheezing, no crackles ABD: Soft, non tender, non distended, no masses or megalies on my exam EXT: Edema not present, pulses present NEURO: AAOx3, moves 4 extremities, no gross deficit on my exam ECG: Sinus, nsst Labs (Last four charted values) WBC 9.6(DEC 01) Hgb 12.1(DEC 01) Hct 36.3(DEC 01) Plt 250(DEC 01) Na 136(DEC 01) K 4.5(DEC 01) CO2 27(DEC 01) Cl 102(DEC 01) Cr 1.20(DEC 01) BUN H 24(DEC 01) Glucose Random H 160(DEC 01) Ca 9.0(DEC 01) Troponin <0.02(DEC 01) CK MB 0.5(DEC 01) Total CK 38(DEC 01) Scheduled Meds: None PRN Meds (1): 12/01/16 sodium chloride (Saline Flush 0.9%) 10 mL IVP PRN ASSESSMENT & PLAN CHEST PAIN - Atypical in origin, likely 2/2 cocaine use. ECG with no acute changes, first set of cardiac biomarkers negative. - Currently chest pain free. Continue to r/o ACS with serial cardiac biomarkers - Resume b-blockers. Continue medical Rx optimization - Will get TTE with Doppler for LVEF assessment HTN - Not at target. Resume losartan and metoprolol. DRUG ABUSE - Extensive counseling provided regarding drug use and its consequences. She voices understanding. DM - Medicine to manage. WIll continue to follow.
--- OUTSIDE RECORDS SUMMARY | 2018-07-15 04:08 | XMS REPORT | Continuity of Care Document ---
Author Author [facility] Interface Address Unknown Phone Unavailable Problems Problem Status Onset Date Classification Date Reported Comments Source CHEST PAIN, UNCOMPLICATED COCAINE ABUSE Active 12/01/2016 [facility] CHEST PAIN Active 12/01/2016 [facility] Polyarthritis Active Problem 07/15/2018 Patrice Thomas Inflammatory arthritis Active Problem 07/15/2018 Patrice Thomas Proteinuria, unspecified type Active Diagnosis 07/15/2018 Patrice Wonger Positive ALDO Active Diagnosis 05/30/2018 Patrice Thomas Pain in left shoulder Active Diagnosis 05/30/2018 Patrice Thomas Anxiety disorder Resolved Problem 12/05/2016 [facility] Arthritis due to other bacteria, left shoulder Resolved Problem 12/05/2016 [facility] Arthritis due to other bacteria, right shoulder Resolved Problem 12/05/2016 [facility] Biceps tendonitis of both shoulders Resolved Problem 12/05/2016 [facility] Bursitis of hip, right Resolved Problem 12/05/2016 [facility] CHF, chronic Resolved Problem 12/05/2016 [facility] Chronic depression Resolved Problem 12/05/2016 [facility] H/O total thyroidectomy with radical neck dissection Resolved Problem 12/05/2016 [facility] HTN (<span [id number]">Confirmed</span>) Resolved Problem 12/05/2016 [facility] Neuropathy of both feet Resolved Problem 12/05/2016 [facility] Tendonitis involving right hip abductors Resolved Problem 12/05/2016 [facility] Abnormal finding on thyroid function test Resolved Problem 12/05/2016 [facility] CHEST PAIN, UNSPECIFIED Active [facility] COCAINE ABUSE, UNCOMPLICATED Active [facility] Medications Medication Details Route Status Patient Instructions Ordering Provider Order Date Source Plaquenil 1 tablet with food or milk Orally Active 200 MG Orally BID [place] 05/28/2018 Patrice Thomas Triiodothyronine 5 microgram, 1 tab, Route: PO, Drug form: TAB, Daily, Dosing Weight 115.455, kg, Start date: 12/03/16 9:00:00 CDT, Duration: 30 day, Stop date: 01/01/17 9:00:00 CDTNotes: (Same as: Cytomel) No Longer Active 12/03/2016 [facility] Thyroxine 200 microgram, 2 tab, Route: PO, Drug form: TAB, Daily, Dosing Weight 115.455, kg, Start date: 12/03/16 6:30:00 CDT, Duration: 30 day, Stop date: 01/01/17 6:30:00 CDTNotes: Take 1 hour before or 2 hours after meal; Enteral feeds may interefere with the absorption of this medication. (Same as:Levothroid, Synthroid) No Longer Active 12/03/2016 [facility] donepezil 10 mg, 2 tab, Route: PO, Drug form: TAB, Bedtime, Dosing Weight 115.455, kg, Start date: 12/02/16 21:00:00 CDT, Duration: 30 day, Stop date: 12/31/16 21:00:00 CDTNotes: (Same as: Aricept) Inactive 12/03/2016 [facility] Simvastatin 40 mg, 1 tab, Route: PO, Drug form: TAB, Bedtime, Dosing Weight 115.455, kg, Start date: 12/02/16 21:00:00 CDT, Duration: 30 day, Stop date: 12/31/16 21:00:00 CDTNotes: (Same as: Zocor) Inactive 12/03/2016 [facility] Glucotrol 10 mg, 1 tab, Route: PO, Drug form: TAB, BID, Start date: 12/02/16 17:00:00 CDT, Duration: 30 day, Stop date: 01/01/17 9:00:00 CDTNotes: (Same as: Glucotrol) 30 min before meals. Inactive 12/02/2016 [facility] glimepiride 4 mg, Route: PO, Drug form: TAB, BID, Dosing Weight 115.455, kg, Start date: 12/02/16 17:00:00 CDT, Duration: 30 day, Stop date: 01/01/17 9:00:00 CDT Inactive 12/02/2016 [facility] gabapentin 600 MG Oral Tablet 600 mg, 2 cap, Route: PO, Drug form: CAP, TID, Dosing Weight 115.455, kg, Start date: 12/02/16 17:00:00 CDT, Duration: 30 day, Stop date: 01/01/17 13:00:00 CDTNotes: (Same as: Neurontin) Inactive 12/02/2016 [facility] Buspirone 10 mg, 1 tab, Route: PO, Drug form: TAB, BID, Dosing Weight 115.455, kg, Start date: 12/02/16 17:00:00 CDT, Duration: 30 day, Stop date: 01/01/17 9:00:00 CDTNotes: (Same As: BuSpar) Inactive 12/02/2016 [facility] Prilosec 10 mg, Route: PO, BID, Dosing Weight 115.455, kg, Start date: 12/02/16 17:00:00 CDT, Duration: 30 day, Stop date: 01/01/17 9:00:00 CDT Inactive 12/02/2016 [facility] morphine 15 mg oral tablet, extended release 15 mg, 1 tab, Route: PO, Drug form: ERTAB, BID, Dosing Weight 115.455, kg, Start date: 12/02/16 17:00:00 CDT, Duration: 30 day, Stop date: 01/01/17 9:00:00 CDTNotes: Do not crush (Same as:Oramorph SR, MS Contin) Inactive 12/02/2016 [facility] Metformin 500 mg, 1 tab, Route: PO, Drug form: TAB, BID, Dosing Weight 115.455, kg, Start date: 12/02/16 17:00:00 CDT, Duration: 30 day, Stop date: 01/01/17 9:00:00 CDTNotes: (Same as: Glucophage) Take with meal Inactive 12/02/2016 [facility] Protonix 40 mg, 1 tab, Route: PO, Drug form: ECTAB, Q24H, Start date: 12/02/16 16:30:00 CDT, Duration: 30 day, Stop date: 12/31/16 16:30:00 CDTNotes: Tablet should not be chewed or crushed. (Same as: Protonix) Inactive 12/02/2016 [facility] aspirin 81 mg tablet, enteric coated 81 mg=1 tab, PO, Q24H, 0 Refill(s) Active 12/02/2016 [facility] Ventolin HFA 90 mcg/inh inhalation aerosol with adapter 2 puff, Route: INHALATION, Drug Form: AERO/A, Dosing Weight 115.455, kg, Q4H, PRN Wheezing, Start date: 12/02/16 13:27:00 CDT, Duration: 30 day, Stop date: 01/01/17 13:26:00 CDTNotes: Same as: Ventolin HFA WASTE: Aerosol - Return to Pharmacy Inactive 12/02/2016 [facility] Morphine 15 mg, Route: PO, BID, Dosing Weight 115.455, kg, Start date: 12/02/16 9:00:00 CDT, Duration: 30 day, Stop date: 12/31/16 17:00:00 CDT Inactive 12/02/2016 [facility] pneumococcal capsular polysaccharide type 1 vaccine / pneumococcal capsular polysaccharide type 10A vaccine / pneumococcal capsular polysaccharide type 11A vaccine / pneumococcal capsular polysaccharide type 12F vaccine / pneumococcal capsular polysacchar 0.5 mL, Route: IM, Drug Form: INJ, Daily, Start date: 12/02/16 9:00:00 CDT, Duration: 1 doses or times, Stop date: 12/02/16 9:00:00 CDTNotes: (Same as: Pneumovax 23) Refrigerate Inactive 12/02/2016 [facility] Losartan 50 mg, 1 tab, Route: PO, Drug form: TAB, Daily, Dosing Weight 115.455, kg, Start date: 12/02/16 9:00:00 CDT, Duration: 30 day, Stop date: 12/31/16 9:00:00 CDTNotes: (Same as: Cozaar) Inactive 12/02/2016 [facility] Saline Flush 0.9% 10 ml, Route: IVP, Drug Form: INJ, Dosing Weight 115.455, kg, Q12H, Start date: 12/02/16 9:00:00 CDT, Duration: 30 day, Stop date: 12/31/16 21:00:00 CDTNotes: (Same as: BD Posiflush) Inactive 12/02/2016 [facility] Insulin, Aspart, Human 2 unit, 0.02 mL, Route: SUB-Q, Drug form: SOLN, TID-Before Meals, Dosing Weight 115.455, kg, PRN Blood Glucose Results, Start date: 12/02/16 1:40:00 CDT, Duration: 30 day, Stop date: 01/01/17 1:39:00 CDTNotes: Roll in palms of hands gently; Do not shake vigorously. (Same as: NovoLOG) "single patient use only" WASTE: F/P - Black; E - Municipal Trash Bin Stable for 28 days at room temperature. Expires in days from Date Inactive 12/02/2016 [facility] Dextrose 50% Syringe 12.5 gm, 25 mL, Route: IVP, Drug Form: INJ, Dosing Weight 115.455, kg, PRN, PRN Blood Glucose Results, Start date: 12/02/16 1:40:00 CDT, Duration: 30 day, Stop date: 01/01/17 1:39:00 CDT Inactive 12/02/2016 [facility] Glucagon 1 mg, Route: IM, Drug form: PDR/INJ, PRN, Dosing Weight 115.455, kg, PRN Blood Glucose Results, Start date: 12/02/16 1:40:00 CDT, Duration: 30 day, Stop date: 01/01/17 1:39:00 CDT Inactive 12/02/2016 [facility] Prilosec 10 mg, PO, BID, 0 Refill(s) Active 12/02/2016 [facility] vortioxetine 10 MG Oral Tablet [Trintellix] 10 mg=1 tab, PO, Daily, 0 Refill(s) Active 12/02/2016 [facility] liothyronine 5 mcg oral tablet 5 microgram=1 tab, PO, Daily, # 30 tab, 0 Refill(s) Active 12/02/2016 [facility] levothyroxine 200 mcg (0.2 mg) oral tablet 200 microgram=1 tab, PO, Daily, # 30 tab, 0 Refill(s) Active 12/02/2016 [facility] aspirin 81 mg tablet, enteric coated 81 mg, 1 tab, Route: PO, Drug form: ECTAB, Q24H, Dosing Weight 115.455, kg, Start date: 12/02/16 1:00:00 CDT, Duration: 30 day, Stop date: 12/31/16 1:00:00 CDTNotes: Do not crush or chew. (Same As: Ecotrin) Inactive 12/02/2016 [facility] Saline Flush 0.9% 10 ml, Route: IVP, Drug Form: INJ, Dosing Weight 115.455, kg, PRN, PRN Line Flush, Start date: 12/01/16 23:22:00 CDT, Duration: 30 day, Stop date: 12/31/16 23:21:00 CDTNotes: (Same as: BD Posiflush) No Longer Active 12/02/2016 [facility] sodium chloride 0.9% 1000 ml INJ 1,000 mL 1,000 mL, Rate: 40 ml/hr, Infuse over: 25 hr, Route: IV, Dosing Weight 115.455 kg, Total Volume: 1,000, Start date: 12/01/16 23:22:00 CDT, Duration: 30 day, Stop date: 12/31/16 23:21:00 CDT No Longer Active 12/02/2016 [facility] Nitroglycerin 0.4 mg, 1 tab, Route: SL, Drug form: TAB, Q5Min, Dosing Weight 115.455, kg, PRN Chest Pain, Start date: 12/01/16 23:22:00 CDT, Duration: 3 doses or times, Stop date: Limited # of timesNotes: (Same as :Nitroquick, Nitrostat) "Do Not Crush" Sublingual tablet No Longer Active 12/02/2016 [facility] Ondansetron 4 mg, 1 tab, Route: PO, Drug form: TAB, Q8H, Dosing Weight 115.455, kg, PRN Nausea & Vomiting, Start date: 12/01/16 23:22:00 CDT, Duration: 30 day, Stop date: 12/31/16 23:21:00 CDTNotes: (Same as: Zofran) No Longer Active 12/02/2016 [facility] morphine 15 mg oral tablet, extended release 1, PO, BID, 0 Refill(s) Active 12/02/2016 [facility] Ventolin HFA 90 mcg/inh inhalation aerosol with adapter 2 puff, INHALATION, Q4H, PRN as needed for wheezing, 0 Refill(s) Active 12/02/2016 [facility] donepezil 10 mg oral tablet 10 mg=1 tab, PO, Bedtime, 0 Refill(s) Active 12/02/2016 [facility] Metoprolol Succinate ER 50 mg oral tablet, extended release 50 mg=1 tab, PO, Daily, 0 Refill(s) No Longer Active 12/02/2016 [facility] losartan 50 mg oral tablet 50 mg=1 tab, PO, Daily, 0 Refill(s) Active 12/02/2016 [facility] glimepiride 4 mg oral tablet 4 mg=1 tab, PO, BID, 0 Refill(s) Active 12/02/2016 [facility] Breo Ellipta 200 mcg-25 mcg/inh inhalation powder 1 puff, INHALATION, Daily, 0 Refill(s) Active 12/02/2016 [facility] gabapentin 600 MG Oral Tablet 600 mg=1 tab, PO, TID, 0 Refill(s) Active 12/02/2016 [facility] simvastatin 40 mg oral tablet 40 mg=1 tab, PO, Bedtime, 0 Refill(s) Active 12/02/2016 [facility] busPIRone 10 mg oral tablet 10 mg=1 tab, PO, BID, 0 Refill(s) Active 12/02/2016 [facility] Ativan 1 mg, 1 tab, Route: PO, Drug form: TAB, ONCE, Dosing Weight 115.455, kg, Priority: STAT, Start date: 12/01/16 21:45:00 CDT, Stop date: 12/01/16 21:45:00 CDTNotes: (Same as: Ativan) Inactive 12/02/2016 [facility] Hydralazine 10 mg, 0.5 mL, Route: IV, Drug form: INJ, ONCE, Dosing Weight 115.455, kg, Start date: 12/01/16 21:19:00 CDT, Stop date: 12/01/16 21:19:00 CDTNotes: (Same as: Apresoline) Push over 5 minutes Inactive 12/02/2016 [facility] Morphine 4 mg, 1 mL, Route: IVP, Drug form: SOLN, ONCE, Dosing Weight 115.455, kg, Priority: STAT, Start date: 12/01/16 21:19:00 CDT, Stop date: 12/01/16 21:19:00 CDTNotes: (Same as:MORPhine Sulfate) Inactive 12/02/2016 [facility] Ondansetron 4 mg, 2 mL, Route: IVP, Drug form: INJ, ONCE, Dosing Weight 115.455, kg, Priority: STAT, Start date: 12/01/16 21:19:00 CDT, Stop date: 12/01/16 21:19:00 CDTNotes: (Same as: Zofran) MEDICATION WASTE Product Size: 4 mg Product Wasted: ___ mg Inactive 12/02/2016 [facility] Saline Flush 0.9% 10 mL, Route: IVP, Drug Form: INJ, Dosing Weight 115.455, kg, PRN, PRN Line Flush, Start date: 12/01/16 19:09:00 CDT, Duration: 30 day, Stop date: 12/31/16 19:08:00 CDTNotes: (Same as: BD Posiflush) No Longer Active 12/02/2016 [facility] 24 HR Metoprolol Tartrate 50 MG Extended Release Tablet [Toprol] 50 mg, 1 tab, Route: PO, Drug form: ERTAB, Daily, Start date: 12/01/16 11:45:00 CDT, Duration: 30 day, Stop date: 12/31/16 9:00:00 CDTNotes: (Same as: Toprol XL) May split tab, but do not crush. No Longer Active 12/01/2016 [facility] Simvastatin 1 tablet in the evening Orally Active 40 MG Orally Once a day Sandovalsusie Thomas Losartan Potassium 1 tablet Orally Active 50 MG Orally Once a day Jaime Thomas Metoprolol Succinate ER 1 tablet Orally Active 100 MG Orally Once a day Sandovalsusie Thomas Levothyroxine Sodium 1 tablet on an empty stomach in the morning Orally Active 25 MCG Orally Once a day Sandovalsusie Thomas Hydrocodone-Acetaminophen 1 tablet as needed Orally Active 10- 325 MG Orally every 6 hrs Sandovalsusie Thomas Glimepiride 1 tablet with breakfast or the first main meal of the day Orally Active 4 MG Orally twice a day Sandovalsusie Thomas Trintellix 1 tablet Orally Active 10 MG Orally Once a day Sandovalsusie Thomas Gabapentin 1 tablet Orally Active 600 MG Orally Three times a day Jaime Thomas Eliquis as directed Orally Active 5 MG Orally Jaime Thomas Liothyronine Sodium 2 tablets Orally Active 5 MCG Orally bid Jaime Thomas Prilosec OTC 1 tablet Orally Active 20 MG Orally bid Jaime Thomas Metformin HCl 1 tablet with meals Orally Active 500 MG Orally Twice a day Jaime Thomas Donepezil Hydrochloride 1 tablet at bedtime Orally Active 10 MG Orally Once a day Jaime Thomas BusPIRone HCl 1 tablet Orally Active 10 MG Orally Twice a day Jaime Thomas Allergies, Adverse Reactions, Alerts Substance Category Reaction Severity Reaction type Status Date Reported Comments Source Rocephin Adverse Reaction rash Adverse Reaction Active 07/13/2018 Patrice Thomas Other Food Allergy Assertion Food allergy Active [facility] Immunizations Immunization Date Given Site Status Last Updated Comments Source pneumococcal 23-valent vaccine 12/02/2016 Not Given [facility] Results Order Name Results Value Reference Range Date Interpretation Comments Source CHEM PANEL Calcium Lvl 9.1 mg/dL 8.5 - 10.5 12/02/2016 [facility] CHEM PANEL eGFR 57 mL/min/1.73m2 12/02/2016 Result Comment: The eGFR is calculated using the [...] from the National Kidney Disease Education Program (NKDEP) which additionally recommends that when the eGFR is used in patients with extremes of body mass index for purposes of drug dosing, the eGFR should be multiplied by the estimated BMI. [facility] CHEM PANEL CO2 27 meq/L 24 - 32 12/02/2016 [facility] CHEM PANEL Sodium Lvl 137 meq/L 135 - 145 12/02/2016 [facility] CHEM PANEL Chloride Lvl 105 meq/L 95 - 109 12/02/2016 [facility] CHEM PANEL Potassium Lvl 4.3 meq/L 3.5 - 5.1 12/02/2016 [facility] CHEM PANEL BUN 21 mg/dL 7 - 22 12/02/2016 [facility] CHEM PANEL Glucose Lvl 142 mg/dL 70 - 99 12/02/2016 [facility] CHEM PANEL Creatinine Lvl 1.10 mg/dL 0.50 - 1.40 12/02/2016 [facility] CHEM PANEL AGAP 9.3 meq/L 10.0 - 20.0 12/02/2016 [facility] HEMATOLOGY Platelet 251 K/CMM 133 - 450 12/02/2016 [facility] HEMATOLOGY MPV 7.9 fL 7.4 - 10.4 12/02/2016 [facility] HEMATOLOGY Hct 33.7 % 36.0 - 48.0 12/02/2016 [facility] HEMATOLOGY MCV 87.1 fL 80.0 - 98.0 12/02/2016 [facility] RDW 13.6 % 11.5 - 14.5 12/02/2016 [facility] MCHC 34.3 g/dL 32.0 - 36.0 12/02/2016 [facility] MCH 29.9 pg 27.0 - 31.0 12/02/2016 [facility] RBC 3.87 M/CMM 4.20 - 5.40 12/02/2016 [facility] HEMATOLOGY WBC 8.7 K/CMM 3.7 - 10.4 12/02/2016 [facility] Hgb 11.6 g/dL 12.0 - 16.0 12/02/2016 [facility] Monocytes 6.0 % 2.0 - 12.0 12/02/2016 [facility] HEMATOLOGY Basophils 0.8 % 0.0 - 1.0 12/02/2016 [facility] HEMATOLOGY Eosinophils 1.4 % 0.0 - 4.0 12/02/2016 [facility] HEMATOLOGY Lymphocytes # 2.4 K/CMM 1.0 - 5.5 12/02/2016 [facility] HEMATOLOGY Segs-Bands # 5.6 K/CMM 1.5 - 8.1 12/02/2016 [facility] Lymphocytes 27.4 % 20.0 - 40.0 12/02/2016 [facility] HEMATOLOGY Segs 64.4 % 45.0 - 75.0 12/02/2016 [facility] HEMATOLOGY Eosinophils # 0.1 K/CMM 0.0 - 0.5 12/02/2016 [facility] HEMATOLOGY Monocytes # 0.5 K/CMM 0.0 - 0.8 12/02/2016 [facility] HEMATOLOGY Basophils # 0.1 K/CMM 0.0 - 0.2 12/02/2016 [facility] CARDIAC ENZYMES Troponin-I null 0.00 - 0.40 12/02/2016 [facility] CARDIAC ENZYMES Total CK 38 unit/L 12 - 191 12/02/2016 [facility] CARDIAC ENZYMES BNP 166 pg/mL <=100 pg/mL 12/02/2016 [facility] CARDIAC ENZYMES Troponin-I null 0.00 - 0.40 12/02/2016 [facility] CARDIAC ENZYMES CK MB 0.5 ng/mL 0.5 - 3.6 12/02/2016 [facility] CARDIAC ENZYMES CK MB Index 1.3 0.0 - 2.5 12/02/2016 [facility] CHEM PANEL eGFR 52 mL/min/1.73m2 12/02/2016 Result Comment: The eGFR is calculated using the [...] from the National Kidney Disease Education Program (NKDEP) which additionally recommends that when the eGFR is used in patients with extremes of body mass index for purposes of drug dosing, the eGFR should be multiplied by the estimated BMI. [facility] CHEM PANEL A/G Ratio 0.8 0.7 - 1.6 12/02/2016 [facility] CHEM PANEL Globulin 4.1 g/dL 2.7 - 4.2 12/02/2016 [facility] CHEM PANEL B/C Ratio 20 6 - 25 12/02/2016 [facility] CHEM PANEL Alk Phos 65 unit/L 39 - 136 12/02/2016 [facility] CHEM PANEL Bili Total 0.5 mg/dL 0.2 - 1.3 12/02/2016 [facility] CHEM PANEL AGAP 11.5 meq/L 10.0 - 20.0 12/02/2016 [facility] CHEM PANEL Albumin Lvl 3.4 g/dL 3.5 - 5.0 12/02/2016 [facility] CHEM PANEL ALT 16 unit/L 0 - 65 12/02/2016 [facility] CHEM PANEL AST 7 unit/L 0 - 37 12/02/2016 [facility] CHEM PANEL CO2 27 meq/L 24 - 32 12/02/2016 [facility] CHEM PANEL Calcium Lvl 9.0 mg/dL 8.5 - 10.5 12/02/2016 [facility] CHEM PANEL Total Protein 7.5 g/dL 6.4 - 8.4 12/02/2016 [facility] CHEM PANEL BUN 24 mg/dL 7 - 22 12/02/2016 [facility] CHEM PANEL Creatinine Lvl 1.20 mg/dL 0.50 - 1.40 12/02/2016 [facility] CHEM PANEL Glucose Lvl 160 mg/dL 70 - 99 12/02/2016 [facility] CHEM PANEL Sodium Lvl 136 meq/L 135 - 145 12/02/2016 [facility] CHEM PANEL Potassium Lvl 4.5 meq/L 3.5 - 5.1 12/02/2016 [facility] CHEM PANEL Chloride Lvl 102 meq/L 95 - 109 12/02/2016 [facility] DRUG SCREEN U Phencyc Scr Negative *NA* (12/01/16 8:40 PM) Negative 12/02/2016 [facility] DRUG SCREEN UDS Note See Note (12/01/16 8:40 PM) 12/02/2016 [facility] DRUG SCREEN U Opiate Scr Positive *ABN* (12/01/16 8:40 PM) Negative 12/02/2016 [facility] DRUG SCREEN U Lisa Scr Negative *NA* (12/01/16 8:40 PM) Negative 12/02/2016 [facility] DRUG SCREEN U Benzodia Scr Negative *NA* (12/01/16 8:40 PM) Negative 12/02/2016 [facility] DRUG SCREEN U Cocaine Scr Positive *ABN* (12/01/16 8:40 PM) Negative 12/02/2016 [facility] DRUG SCREEN U Cannab Scr Negative *NA* (12/01/16 8:40 PM) Negative 12/02/2016 [facility] DRUG SCREEN U Amph Scr Positive *ABN* (12/01/16 8:40 PM) Negative 12/02/2016 [facility] HEMATOLOGY MCV 87.0 fL 80.0 - 98.0 12/02/2016 [facility] HEMATOLOGY Hct 36.3 % 36.0 - 48.0 12/02/2016 [facility] HEMATOLOGY MCH 29.0 pg 27.0 - 31.0 12/02/2016 [facility] HEMATOLOGY MCHC 33.3 g/dL 32.0 - 36.0 12/02/2016 [facility] HEMATOLOGY RDW 13.3 % 11.5 - 14.5 12/02/2016 [facility] HEMATOLOGY Platelet 250 K/CMM 133 - 450 12/02/2016 [facility] HEMATOLOGY MPV 8.1 fL 7.4 - 10.4 12/02/2016 [facility] HEMATOLOGY WBC 9.6 K/CMM 3.7 - 10.4 12/02/2016 [facility] RBC 4.18 M/CMM 4.20 - 5.40 12/02/2016 [facility] HEMATOLOGY Hgb 12.1 g/dL 12.0 - 16.0 12/02/2016 [facility] HEMATOLOGY Monocytes 6.5 % 2.0 - 12.0 12/02/2016 [facility] HEMATOLOGY Segs 64.7 % 45.0 - 75.0 12/02/2016 [facility] HEMATOLOGY Lymphocytes 26.5 % 20.0 - 40.0 12/02/2016 [facility] HEMATOLOGY Eosinophils 1.0 % 0.0 - 4.0 12/02/2016 [facility] HEMATOLOGY Basophils 1.3 % 0.0 - 1.0 12/02/2016 [facility] HEMATOLOGY Segs-Bands # 6.2 K/CMM 1.5 - 8.1 12/02/2016 [facility] Lymphocytes # 2.5 K/CMM 1.0 - 5.5 12/02/2016 [facility] Monocytes # 0.6 K/CMM 0.0 - 0.8 12/02/2016 [facility] Eosinophils # 0.1 K/CMM 0.0 - 0.5 12/02/2016 [facility] Basophils # 0.1 K/CMM 0.0 - 0.2 12/02/2016 [facility] Chest 1view DX Chest 1view DX Chest 1view DX 12/01/2016 7:09 PM CDT Ordering Physician: Meek Martell CLINICAL HISTORY: - cp; TECHNIQUE: AP view of the chest were obtained. COMPARISON: August 2009 FINDINGS: Lungs are clear. No pleural effusion of pneumothorax is present. Cardiomediastinal silhouette is normal. Lower cervical ACDF postoperative changes are present. Otherwise, bones are normal. IMPRESSION: No acute abnormality of the chest. SL: SSENDOS-PC 12/01/2016 - - Read by: Mirian Guzman MD Dictated Date/time: 12/01/16 22:54 Electronically Signed by: Mirian Guzman MD 12/01/16 22:54 FINAL REPORT [facility] Vital Signs Vital Sign Value Date Comments Source Weight 232.4 07/13/2018 Patrice Thomas Height 62 07/13/2018 Patrice Thomas Temperature Oral (F) 98.9 F 07/13/2018 Patrice Wonger Heart Rate 68 07/13/2018 Patrice Thomas Diastolic (mm Hg) 72 07/13/2018 Patrice Thomas Systolic (mm Hg) 120 07/13/2018 Patrice Thomas Weight 235.3 05/28/2018 Patrice Thomas Height 62 05/28/2018 Patrice Thomas Temperature Oral (F) 98.4 F 05/28/2018 Patrice Thomas Heart Rate 60 05/28/2018 Patrice Thomas Diastolic (mm Hg) 82 05/28/2018 Patrice Thomas Systolic (mm Hg) 112 05/28/2018 Patrice Thomas Diastolic (mm Hg) 65 12/02/2016 [facility] Temperature Oral (F) 98.6 F 12/02/2016 [facility] Heart Rate 73 12/02/2016 [facility] Systolic (mm Hg) 104 12/02/2016 [facility] Respitory Rate 18 12/02/2016 [facility] Temperature Oral (F) 98.1 F 12/02/2016 [facility] Heart Rate 71 12/02/2016 [facility] Systolic (mm Hg) 128 12/02/2016 [facility] Diastolic (mm Hg) 75 12/02/2016 [facility] Respitory Rate 17 12/02/2016 [facility] Respitory Rate 16 12/02/2016 [facility] Temperature Oral (F) 98.1 F 12/02/2016 [facility] Heart Rate 67 12/02/2016 [facility] Systolic (mm Hg) 132 12/02/2016 [facility] Diastolic (mm Hg) 77 12/02/2016 [facility] Weight 115.455 12/02/2016 [facility] BMI Calculated 45.09 12/02/2016 [facility] Height 160.02 cm 12/02/2016 [facility] Weight 115.455 12/02/2016 [facility] BMI Calculated 45.09 12/01/2016 [facility] Height 160.02 cm 12/01/2016 [facility] Weight 115.455 12/01/2016 [facility] Encounters Location Location Details Encounter Type Encounter Number Reason For Visit Attending Provider ADM Date DC Date Status Source [facility] Observation [id number] Keenan Hurt 12/01/2016 12/02/2016 [facility] Procedures Procedure Code Date Perfomer Comments Source Caesarean section [id number] [facility] Endoscopic carpal tunnel release [id number] [facility] Gastric bypass operation [id number] [facility] Lumbar laminectomy and excision of intradural spinal lesion [id number] [facility]
--- OUTSIDE RECORDS SUMMARY | 2018-07-15 04:08 | XMS REPORT ---
Author Dean Matamoros Organization [employer] Address Unknown Phone Unavailable Care Team Providers Care Kelp Gatherer Name Role Phone Dean Thomas CP Unavailable Allergies No Known Allergies Problems Problem Type Condition Code Onset Dates Condition Status Problem Polyarthritis M13.0 Active Medications No Known Medications Results No Known Results Summary Purpose [employer] Submission
--- OUTSIDE RECORDS SUMMARY | 2018-07-15 04:08 | XMS REPORT ---
Author Author Elina Sandoval [facility] eClinicalWorks Address Unknown Phone Unavailable Care Team Providers Care Jewel Blocker And Sawyer Name Role Phone Elina Sandoval Unavailable Allergies, Adverse Reactions, Alerts Substance Reaction Event Type Rocephin rash Drug Allergy Problems Problem Type Condition Code Onset Dates Condition Status Problem Polyarthritis M13.0 Active Problem Inflammatory arthritis M19.90 Active Assessment Inflammatory arthritis M19.90 Active Assessment Proteinuria, unspecified type R80.9 Active Medications Medication Code System Code Instructions Start Date End Date Status Dosage Simvastatin ND 54594468267 40 MG Orally Once a day Active 1 tablet in the evening Losartan Potassium ND 58266067260 50 MG Orally Once a day Active 1 tablet Metoprolol Succinate ER ND 61931889046 100 MG Orally Once a day Active 1 tablet Levothyroxine Sodium ND 17895579446 25 MCG Orally Once a day Active 1 tablet on an empty stomach in the morning Hydrocodone-Acetaminophen ND 66213298886 10-325 MG Orally every 6 hrs Active 1 tablet as needed Glimepiride ND 12169729586 4 MG Orally twice a day Active 1 tablet with breakfast or the first main meal of the day Trintellix ND 36228462015 10 MG Orally Once a day Active 1 tablet Plaquenil ND 74134632067 200 MG Orally BID May 28, 2018 Active 1 tablet with food or milk Gabapentin ND 58165560884 600 MG Orally Three times a day Active 1 tablet Eliquis ND 20427297510 5 MG Orally Active as directed Liothyronine Sodium ND 21045223007 5 MCG Orally bid Active 2 tablets Prilosec OTC ND 69603547735 20 MG Orally bid Active 1 tablet Metformin HCl ND 17209848845 500 MG Orally Twice a day Active 1 tablet with meals Donepezil Hydrochloride ND 28545016939 10 MG Orally Once a day Active 1 tablet at bedtime Vital Signs Date/Time: July 13, 2018 BMI 43 Index Weight 232.4 lbs Height 62 in Temperature 98.9 F Cardiac Monitoring Heart Rate 68 /min Blood Pressure Diastolic 72 mm Hg Blood Pressure Systolic 120 mm Hg Results No Known Results Summary Purpose eClinicalWorks Submission
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
[2018-07-15 05:27] VITALS: BP 105/67
== END 2018-07-15 06:09 | disposition home or self-care (01) ==
LOC: ER 04:04
DX: S80.02XA Contusion of left knee, initial encounter (principal); W01.0XXA Fall on same level from slipping, tripping and stumbling without subsequent striking against object, initial encounter; Y92.008 Other place in unspecified non-institutional (private) residence as the place of occurrence of the external cause; I10 Essential (primary) hypertension; I48.91 Unspecified atrial fibrillation; M32.9 Systemic lupus erythematosus, unspecified; Z98.84 Bariatric surgery status
CPT/HCPCS: 99282

== ENCOUNTER → 2019-04-19 | Outpatient (CLI) | payer MEDICARE ==
--- NOTE | 2019-04-19 16:48 | Diagnostic Imaging Report ---
Hepatobiliary Scan with Gallbladder Ejection Fraction Clinical information: R10.11 RUQ pain Technique: Following intravenous administration of 6.6 millicuries of Tc-99m mebrofenin, dynamic images of the abdomen in the anterior projection were obtained through 20 minutes. Sincalide (CCK analog) 2.0 micrograms was administered intravenously over 30 minutes with additional imaging for determination of gallbladder ejection fraction. Discussion: Perfusion of the liver is normal. Extraction of tracer by the liver parenchyma is normal. Tracer appears promptly within the biliary tract. The gallbladder begins to fill by 7 minutes post injection of tracer and fills adequately. Tracer is seen in the small bowel by 14 minutes. The gallbladder ejection fraction with sincalide is 34% (normal greater than 40%). Impression: 1. Filling of the gallbladder excludes acute cystic duct obstruction/acute cholecystitis. 2. The decreased gallbladder ejection fraction of 34% supports the clinical diagnosis of chronic cholecystitis/gallbladder dyskinesia. Signed by: Dr. Kirsten Montano M.D. on 04/19/2019 4:44 PM
== END ==
LOC: NM 10:44
PROVIDERS: ATTEND Internal Medicine
DX: R10.11 Right upper quadrant pain (principal)
CPT/HCPCS: 78227; A9537

== ENCOUNTER → 2019-11-10 | Outpatient (CLI) | payer MEDICARE ==
--- NOTE | 2019-11-10 13:20 | Diagnostic Imaging Report ---
EXAMINATION: Left Hip Films CLINICAL HISTORY:Pain in left hip COMPARISON: None. DISCUSSION: The bones are well-mineralized. No fractures or dislocations. No gross soft tissue abnormalities. No osteolytic or osteoblastic lesions. Atherosclerotic calcifications of the superficial femoral and profundus femoris arteries incidentally noted. IMPRESSION: No acute osseous abnormality. Signed by: Dr. Ricardo Alvarado M.D. on 11/10/2019 1:16 PM
--- NOTE | 2019-11-10 13:26 | Diagnostic Imaging Report ---
Exam: Lumbar spine complete History: Low back pain, left-sided sciatica Comparison: None. Findings: There are 5 nonrib-bearing lumbar-type vertebral bodies with a transitional lumbosacral vertebra which will be referred to as S1 for purposes of this examination. No acute, displaced fracture or subluxation. There is a right-sided L5 pars interarticularis defect without spondylolisthesis. There is advanced disc space narrowing and large marginal osteophytes at L4-L5 and L5-S1. Bilateral facet arthropathy at these levels is also noted, with 6 mm degenerative anterolisthesis of L4 over L5. The remaining disc spaces are well-maintained. Atherosclerotic vascular calcifications, radiopaque suture material projecting over the upper abdomen, and right upper quadrant surgical clips likely related to prior cholecystectomy are incidentally noted. The sacroiliac joints are intact. Sacral foramina appear intact superiorly. Impression: Suspected right-sided L5 pars interarticularis defect. Advanced degenerative disc changes and facet arthropathy L4-L5 and L5-S1, with 6 mm degenerative anterolisthesis of L4 over L5. Transitional lumbosacral anatomy as above. Signed by: Dr. Ricardo Alvarado M.D. on 11/10/2019 1:22 PM
== END ==
LOC: RAD 10:42
PROVIDERS: ATTEND Internal Medicine
DX: M25.552 Pain in left hip (principal); M54.42 Lumbago with sciatica, left side
CPT/HCPCS: 72110

== ENCOUNTER 2021-02-09 17:01 | Emergency (ER) | payer MEDICARE, OTHER ==
[~2021-02-09] VITALS: Ht 160 cm; Wt 104.8 kg
== END 2021-02-09 19:10 | disposition home or self-care (01) ==
LOC: ER 17:14
DX: S82.61XA Displaced fracture of lateral malleolus of right fibula, initial encounter for closed fracture (principal); W01.0XXA Fall on same level from slipping, tripping and stumbling without subsequent striking against object, initial encounter; Y93.01 Activity, walking, marching and hiking; Y92.89 Other specified places as the place of occurrence of the external cause; I10 Essential (primary) hypertension; E11.9 Type 2 diabetes mellitus without complications; I48.91 Unspecified atrial fibrillation; M32.9 Systemic lupus erythematosus, unspecified; M06.9 Rheumatoid arthritis, unspecified; Z98.84 Bariatric surgery status
CPT/HCPCS: 99283